=== PATIENT | female | born 1945 | race Caucasian/White ===

== ENCOUNTER 2017-11-05 08:39 | Emergency (ER) | payer MEDICARE, BC ==
[2017-11-05] MEDS ORDERED: Tetracaine 0.5% OPTH.SOL 4 ML* 1 DROP BTL BOTH EYES ONE (10:35)
[2017-11-05] MEDS ORDERED: Fluorescein Sodium TOPICAL* 1 MG TEST OPHTHALMIC ONE (10:35)
[2017-11-05] MEDS ORDERED: Furosemide TAB* 20 MG PO ONE (11:21)
[2017-11-05] MEDS ORDERED: Metoprolol Tartrate TAB* 25 MG PO ONE (11:21)
[2017-11-05] MEDS ORDERED: Aspirin TAB* 325 MG PO ONE (11:49)
[2017-11-05 12:05] VITALS: BP 148/76
--- NOTE | 2017-11-05 12:29 | UC ---
Angel Morales Angela, scribed for Violet Byrd DO on 11/05/17 at 1005 . Eye Complaint HPI - HPI Summary HPI Summary: This pt is a 72 y/o female presenting to [facility] c/o right eye pain s/p hard contact lens stuck in her right eye last night. Pt reports she fell asleep with her contact lens inside last night. She has tried to taken it off but was unable to get it out. She has been using saline and visine with no relief. Pt notes her right eye is red and has discomfort currently. She is unsure if she has a contact lens on her left eye. 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 Pt has had contacts since she was 19 y/o and notes it has never been stuck like this. Pt denies fever, chills, diaphoresis, chest pain, SOB, cough, nausea, vomiting. Pt states having a headache, but notes she gets them often for the past 6 months. Her PCP is aware and has been working on it. She describes them as discomfort localized on the temporal areas. Denies chest pain, SOB. Pt is being followed by her PCP, Dr. Vela. Her blood pressure has been erratic for the past 4 months. She reports she has not taken her medications yet today. PMHx: breast CA (10 years ago). - History of Current Complaint Chief Complaint: UCEye Stated Complaint: FB IN EYE Time Seen by Provider: 11/05/17 09:58 Hx Obtained From: Patient Onset/Duration: Lasting Hours, Still Present Timing: Hours Severity Currently: Mild Pain Intensity: 2 Pain Scale Used: 0-10 Numeric Character: Foreign Body Sensation - contact lens Aggravating Factor(s): Nothing Alleviating Factor(s): Nothing Associated Signs And Symptoms: Positive: Negative - Allergies/Home Medications Allergies/Adverse Reactions: Allergies Allergy/AdvReac Type Severity Reaction Status Date / Time Penicillins Allergy Severe ANAPHYLACTI Verified 11/05/17 08:59 C Amoxicillin Allergy Anaphylatic Verified 11/05/17 08:59 Shock Home Medications: Home Medications Metoprolol Tartrate TAB* [Lopressor TAB*] 25 mg PO DAILY 11/05/17 [History Confirmed 11/05/17] PMH/Surg Hx/FS Hx/Imm Hx Other Endocrine History: DENIES: diabetes Cardiovascular History: Hypertension Cancer History: Breast Cancer - Surgical History Surgical History: Yes Surgery Procedure, Year, and Place: [place] [facility] [place]. REMOVAL OF PRECANCER CELLS IN RIGHT EAR. THYROID BIOPSY - Family History Known Family History: Positive: Cardiac Disease, Diabetes, Other - Alzheimer's - Social History Alcohol Use: Daily Substance Use Type: None Smoking Status (MU): Former Smoker Type: Cigarettes Length of Time of Smoking/Using Tobacco: 55 YEARS Have You Smoked in the Last Year: Yes When Did the Patient Quit Smoking/Using Tobacco: 07/2016 Review of Systems Constitutional: Negative Skin: Negative Eyes: Eye Redness - right, Other - right and left eye discomfort ENT: Negative Respiratory: Negative Cardiovascular: Negative Gastrointestinal: Negative Genitourinary: Negative Motor: Negative Neurovascular: Negative Musculoskeletal: Negative Neurological: Headache, Other - dizziness Psychological: Negative All Other Systems Reviewed And Are Negative: Yes Physical Exam Triage Information Reviewed: Yes Appearance: Well-Appearing, No Pain Distress, Well-Nourished Vital Signs: Initial Vital Signs Temp 98 F 11/05/17 09:02 Pulse 58 11/05/17 09:02 Resp 15 11/05/17 09:02 BP 182/65 11/05/17 09:02 Pulse Ox 100 11/05/17 09:02 Vital Signs Reviewed: Yes Eyes: Positive: Other: - She had some inflammation in the right conjunctiva. Pt had contact lenses in each eye which were difficult to remove. They were both removed with the help of tetracaine and two cotton tip applicators. There is no fluorescein uptake noted on the cornea. ENT: Positive: Hearing grossly normal. Negative: Muffled voice, Hoarse voice Neck exam: Normal Neck: Positive: Supple Respiratory: Positive: Lungs clear, Normal breath sounds, No respiratory distress, No accessory muscle use Cardiovascular: Positive: RRR, No Murmur Musculoskeletal Exam: Normal Neurological: Positive: Alert, Muscle Tone Normal Psychological Exam: Normal Psychological: Positive: Age Appropriate Behavior Skin Exam: Normal, Other - warm, dry, normal color Eye Complaint Course/Dx - Course Course Of Treatment: I attempted to remove the hard contacts with gloved fingers and failed. This caused the pt significant discomfort. After which bp was elevated 233/99. She noted feeling dizzy at that point, she states it feels like her blood pressure is elevated. [10:31] I spoke with Dr. Guzman, guard sergeant. In the ED course, tetracaine was used. Contact lenses from both eyes were removed. We gave the pt her morning dose of metoprolol and asprin that she missed this morning. We waited and observed pt. bp was recheck and found 148/76. bennett and dizziness resolved. Medications reviewed. Allergies reviewed. Elevated blood pressure noted, with PMHx of HTN. - Differential Dx/Diagnosis Provider Diagnoses: htn, fb in eye Discharge - Discharge Plan Condition: Stable Disposition: HOME Prescriptions: Ofloxacin 0.3%(Ophth)(Nf) [Ocuflox OPTH 0.3%(NF)] 0.3 % OP QID #1 bottle Patient Education Materials: Chronic Hypertension (ED), Eye Foreign Body (ED) Referrals: Violet Vela MD [Primary Care Provider] - (FOLLOW UP IN 3-5 DAYS) Additional Instructions: WE HAVE REMOVED THE CONTACT LENS AND ARE GIVING YOU AN ANTIBIOTIC EYE DROP. Your blood pressure was elevated at this visit, it is probably due to your current condition. Please follow up with your primary care provider. Follow up with your doctor, Dr. Sifuentes. Call him Monday [phone]. The documentation as recorded by the Angel chaudhary Angela accurately reflects the service I personally performed and the decisions made by me, Violet Byrd DO.
== END 2017-11-05 12:18 | disposition home or self-care (01) ==
LOC: UCEAST 08:39
DX: H18.823 Corneal disorder due to contact lens, bilateral (principal); I10 Essential (primary) hypertension; Z88.0 Allergy status to penicillin; Z85.3 Personal history of malignant neoplasm of breast; Z87.891 Personal history of nicotine dependence
CPT/HCPCS: 99213; A9270-GY; G0463

== ENCOUNTER 2018-04-26 10:44 | Emergency (ER) | payer MEDICARE, BC ==
[2018-04-26] MEDS ORDERED: Furosemide IV* 10 MG/ML VIAL (40 MG) IV SLOW PU ONE (11:23)
[2018-04-26] MEDS ORDERED: Aspirin 81 mg CHEW TAB* 81 MG TAB.CHEW PO ONE (11:24)
--- NOTE | 2018-04-26 11:26 | ED ---
Dizziness - HPI Summary HPI Summary: 72 y/o female presents to the ED w/ high BP this morning; measured 167 at home ( 08:00 this morning). Pt reports feeling shaky at the dentist's office later this morning. Pt did not take all of her medicine this morning. Associated sx: increased frequency of urination (due to Furosemide, which pt did not take this morning). Denies blurred vision. Pt gained 25 lbs in the past 2 years. - History Of Current Complaint Chief Complaint: EDHypertension Stated Complaint: HIGH BP Hx Obtained From: Patient Timing: Hours Associated Signs And Symptoms: Positive: Other: - high blood pressure, increased urinary frequency, shakiness - Allergies/Home Medications Allergies/Adverse Reactions: Allergies Allergy/AdvReac Type Severity Reaction Status Date / Time Penicillins Allergy Anaphylatic Verified 04/26/18 11:01 Shock Home Medications: Home Medications Aspirin TAB* [Aspirin 325 MG TAB*] 325 mg PO DAILY 04/26/18 [History Confirmed 04/26/18] Cholecalciferol TAB* [Vitamin D TAB*] 1,000 unit PO DAILY 04/26/18 [History Confirmed 04/26/18] Cyanocobalamin TAB* [Vitamin B12 TAB*] 500 mcg PO DAILY 04/26/18 [History Confirmed 04/26/18] Felodipine (NF) [Plendil (NF)] 2.5 mg PO DAILY 04/26/18 [History Confirmed 04/26] Furosemide TAB* [Lasix TAB*] 40 mg PO DAILY 04/26/18 [History Confirmed 04/26/18 ] Metoprolol Succinate XL TAB* [Toprol XL TAB*] 50 mg PO DAILY 04/26/18 [History Confirmed 04/26/18] Ranitidine TAB (NF) [Zantac TAB (NF)] 150 mg PO DAILY 04/26/18 [History Confirmed 04/26/18] PMH/Surg Hx/FS Hx/Imm Hx Previously Healthy: No Endocrine/Hematology History: Denies: Hx Diabetes, Hx Anemia Cardiovascular History: Reports: Hx Hypertension - MEDICATED Denies: Hx Pacemaker/ICD GI History: Denies: Hx Jaundice History: Denies: Hx Renal Disease Musculoskeletal History: Reports: Hx Arthritis - ALL OVER Denies: Hx Osteoporosis Sensory History: Reports: Hx Contacts or Glasses - BOTH Denies: Hx Hearing Aid Opthamlomology History: Reports: Hx Contacts or Glasses - BOTH Psychiatric History: Denies: Hx Panic Disorder - Cancer History Cancer Type, Location and Year: BREAST CA Hx Chemotherapy: No Hx Radiation Therapy: Yes - Surgical History Surgery Procedure, Year, and Place: RT LUMPECTOMY 2009 [facility] – [place]. TUBAL LIGATION IN 'S. REMOVAL OF PRECANCER CELLS IN RIGHT EAR. THYROID BIOPSY. RT CAROTID ENDARTERECTOMY Hx Anesthesia Reactions: No Infectious Disease History: No Infectious Disease History: Denies: Hx Clostridium Difficile, Hx Hepatitis, Hx Human Immunodeficiency Virus (HIV), Hx of Known/Suspected MRSA, Hx Shingles, Hx Tuberculosis, Hx Known/ Suspected VRE, Hx Known/Suspected VRSA, History Other Infectious Disease, Traveled Outside the [place] in Last 30 Days - Family History Known Family History: Positive: Cardiac Disease, Diabetes, Other - Alzheimer's - Social History Alcohol Use: Daily Alcohol Amount: 3drinks/day Hx Substance Use: No Substance Use Type: Reports: None Hx Tobacco Use: Yes Smoking Status (MU): Former Smoker Type: Cigarettes Length of Time of Smoking/Using Tobacco: 55 YEARS Have You Smoked in the Last Year: Yes Review of Systems Negative: Fever, Chills Negative: Erythema Negative: Sore Throat Negative: Chest Pain Negative: Shortness Of Breath, Cough Negative: Abdominal Pain, Vomiting, Nausea Positive: urgency - increased . Negative: dysuria, hematuria Negative: Myalgia, Edema Negative: Rash Neurological: Other - shakiness All Other Systems Reviewed And Are Negative: Yes Physical Exam - Summary Physical Exam Summary: Constitutional: Well-developed, Well-nourished, Alert. (-) Distressed Skin: Warm, Dry HENT: Normocephalic; Atraumatic Eyes: Conjunctiva normal Neck: Musculoskeletal ROM normal neck. (-) JVD, (-) Stridor, (-) Tracheal deviation Cardio: Rhythm regular, rate normal, Heart sounds normal; Intact distal pulses; The pedal pulses are 2+ and symmetric. Radial pulses are 2+ and symmetric. (-) Murmur Pulmonary/Chest wall: Effort normal. (-) Respiratory distress, (-) Wheezes, (-) Rales Abd: Soft, (-), epigastric tenderness, (-) Distension, (-) Guarding, (-) Rebound Musculoskeletal: (-) Edema Lymph: (-) Cervical adenopathy Neuro: Alert, Oriented x3 Psych: Mood and affect Normal Triage Information Reviewed: Yes Vital Signs On Initial Exam: Initial Vitals Temp Pulse Resp BP Pulse Ox 98.8 F 62 16 218/75 99 04/26/18 10:57 04/26/18 10:57 04/26/18 10:57 04/26/18 10:57 04/26/18 10:57 Vital Signs Reviewed: Yes Diagnostics - Vital Signs Vital Signs Temp Pulse Resp BP Pulse Ox 04/26/18 11:00 63 100 04/26/18 10:58 57 218/75 99 04/26/18 10:57 98.8 F 64 16 218/75 99 - Laboratory Result Diagrams: 04/26/18 11:34 04/26/18 11:34 Lab Statement: Any lab studies that have been ordered have been reviewed, and results considered in the medical decision making process. - CT BRAIN CT CT Interpretation: No Acute Changes - Chronic ischemic White matter change without evidence of intracranial mass or hemorrhage. CT Interpretation Completed By: Radiologist - EKG 1 EKG Interpretation: 11:37 - sinus bradycardia @ 58 BPM. No STEMI. Dizzy Course/Dx - Course Assessment/Plan: Pt improved in ED, says she feels better. There could be some situational anxiety as well - Diagnoses Provider Diagnoses: Noncompliance with medication regimen, Uncontrolled hypertension Discharge - Discharge Plan Condition: Stable Disposition: HOME Patient Education Materials: Hypertension (ED) Referrals: Violet Vela MD [Primary Care Provider] - 4 Days (APPT Monday04/30/18 @ 10: 15) Additional Instructions: RETURN TO ED FOR RETURNING OR WORSENING OF SYMPTOMS
[2018-04-26 11:44] LABS: ABS Basophils 0.1 10^3/ul (0-0.2); ABS Eosinophils 0.1 10^3/ul (0-0.6); ABS Lymphocytes 1.2 10^3/ul (1.0-4.8); ABS Monocytes 0.4 10^3/ul (0-0.8); ABS Neutrophils 3.9 10^3/ul (1.5-7.7); ABS Nucleated RBC 0 10^3/ul; Eosinophil % 1.4 % (0-6); Hematocrit 39 % (35-47); Hemoglobin 13.3 g/dl (12.0-16.0); Mean Corpuscular HGB Conc 34 g/dl (31-36); Mean Corpuscular Hemoglobin 30 pg (27-31); Mean Corpuscular Volume 88 fL (80-97); Mean Platelet Volume 7.7 um3 (7.4-10.4); Nucleated Red Blood Cells % 0; Platelet Count 237 10^3/ul (150-450); Red Blood Count 4.44 10^6/ul (4.00-5.40); Red Cell Distribution Width 14 % (10.5-15); White Blood Count 5.7 10^3/ul (3.5-10.8)
[2018-04-26 11:55] LABS: Urine Appearance Clear; Urine Blood Negative (Negative); Urine Color Colorless; Urine Ketones Negative (Negative); Urine Protein Negative (Negative); Urine Specific Gravity 1.002 (1.010-1.030); Urine Urobilinogen Negative (Negative)
[2018-04-26 12:02] LABS: EGFR Non-African American 72.4 (>60)
--- NOTE | 2018-04-26 12:45 | RAD ---
Indication: Dizziness, hypertension. CT of the brain was performed without IV contrast. Ventricular structures are midline. No midline shift is noted. The extra-axial spaces are unremarkable. There is no evidence of intracranial mass or hemorrhage. No other high or low density lesions are identified. Periventricular lucency consistent with chronic ischemic White matter change is noted. Mastoid air cells and paranasal sinuses are unremarkable. Overall no changes noted since previous exam of July 27, 2016. IMPRESSION: Chronic ischemic White matter change without evidence of intracranial mass or hemorrhage.
[2018-04-26 14:15] VITALS: BP 177/91
== END 2018-04-26 14:16 | disposition home or self-care (01) ==
LOC: ED 10:44
DX: I10 Essential (primary) hypertension (principal); Z91.14 Patient's other noncompliance with medication regimen; R00.1 Bradycardia, unspecified; Z79.82 Long term (current) use of aspirin; Z79.899 Other long term (current) drug therapy; Z87.891 Personal history of nicotine dependence; Z88.0 Allergy status to penicillin
CPT/HCPCS: 36415; 70450; 80053; 81003; 83605; 83735; 83880; 84443; 84484; 85025; 93005; 96374; 99283; A9270-GY; J1940